=== PATIENT | female | born 1965 | race Caucasian/White ===

== ENCOUNTER 2018-02-06 16:33 | Inpatient (IN) ==
[2018-02-06] MEDS ORDERED: Labetalol HCl Inj 100 MG/20 ML Vial IV.PUSH ONE (16:51)
--- NOTE | 2018-02-06 16:56 | ED ---
HPI General Chief complaint: Recheck/Abnormal Lab/Rx Stated complaint: Pressure Behind Lft Eye Time Seen by Provider: 02/06/18 16:45 Source: patient Mode of arrival: ambulatory Limitations: no limitations History of Present Illness HPI narrative: 52yo F with PMH of HTN, fibromyalgia was sent from her eye doctor today for blood pressure control. 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 Pt has appointment with retinal specialist next week and was told to come to the ED because her blood pressure there was 210/150. Pt said she has not been taking blood pressure medication for 1 year and does not even remember what she was on. Said she has constant headache on left side. Denies any fever, trauma, chest pain, sob, n/v, abdominal pain, focal weakness or numbness. Related Data Home Medications Medication Instructions Recorded Confirmed hydrocodone-acetaminophen 1 tab PO Q6H PRN 02/06/18 02/06/18 Allergies Allergy/AdvReac Type Severity Reaction Status Date / Time No Known Allergies Allergy Unverified 02/06/18 16:43 Review of Systems ROS Unobtainable All other systems reviewed negative except as stated in HPI [facility] Medical History Medical History Fibromyalgia (Acute) Herniated cervical disc (Acute) Hypertension (Acute) Migraine (Acute) Surgical History Surgical History S/P hysterectomy (Acute) Social History Social History Substance History: No History of Abuse Second Hand Smoke Exposure: No Smoking Status: Current every day smoker Tobacco Type: Cigarettes How Often Do You Have a Drink Containing Alcohol: Never Recent Travel in [facility] within the Last 8 Weeks: No Recent Out of Country Travel within the Last 8 Weeks: No Exam Narrative Exam Narrative: GENERAL: 52yo F not in distress. SKIN: Focused skin assessment warm/dry. HEAD: Atraumatic. Normocephalic. EYES: Pupils equal and and dilated. Pt had dilatation of her pupils today. ENT: No nasal bleeding or discharge. Mucous membranes pink and moist. NECK: Trachea midline. No JVD. CARDIOVASCULAR: Regular rate and rhythm. No murmur appreciated. RESPIRATORY: No accessory muscle use. Clear to auscultation. Breath sounds equal bilaterally. GASTROINTESTINAL: Abdomen soft, non-tender, nondistended. MUSCULOSKELETAL: No obvious deformities. No clubbing. No cyanosis. No edema. NEUROLOGICAL: Awake and alert. No obvious cranial nerve deficits. Motor grossly within normal limits in all extremities. Sensation intact. Normal speech. PSYCHIATRIC: Appropriate mood and affect; insight and judgment normal. Course Initial Documented Vital Signs Temperature 98.4 F 02/06/18 16:46 Pulse Rate 94 H 02/06/18 16:46 Respiratory Rate 16 02/06/18 16:46 Blood Pressure 283/150 H 02/06/18 16:46 Pulse Oximetry 98 02/06/18 16:46 Last Documented Vital Signs Temperature 97.8 F 02/06/18 21:31 Pulse Rate 84 02/06/18 23:32 Respiratory Rate 29 H 02/06/18 23:32 Blood Pressure 205/111 H 02/06/18 23:32 Pulse Oximetry 99 02/06/18 21:31 Critical Care Time Critical Care Time: Yes Total Critical Care Time: 50 Attestation: Aggregate critical care time was 50 minutes. Time to perform other separately billable procedures was not included in the critical care time. My time did not include minutes spent treating any other patients simultaneously or on activities that did not directly contribute to the patient's treatment. The services I provided to this patient were to treat and/or prevent clinically significant deterioration that could result in: cardiovascular collapse or . I provided critical care services requiring my management, as noted below: Chart data review, documentation time, medication orders and management, vital sign assessments/reviewing monitor data, ordering and reviewing lab tests, ordering and interpreting/reviewing x-rays and diagnostic studies, care of the patient and discussion of the patient with the admitting physicians. Medical Decision Making MDM Narrative Medical decision making narrative: 52yo F was sent here from her eye doctor for blood pressure control. Pt has markedly elevated blood pressure of 283/150 and was given labetalol 20mg IV. BP improved a little and was given hydralazine 10mg IV. BP improved to 219/121 after hydralazine. Pt reevaluated at bedside and said headache has improved but still there. Repeat BP is now 233/118. Feel that pt already has end organ damage with her left eye artery occlusion and pt's blood pressure is not controlled after [address] brain negative. Labs reviewed, no leukocytosis. Creatinine mildly elevated at 1.40. No prior to compare. Will place pt on nicardipine drip. Discussed with Dr. Pickard and accepted to his service. Differential Diagnosis Differential Diagnosis: Hypertensive emergency vs. ICH vs. CVA vs. CHANO Lab Data Result diagrams: 02/06/18 17:05 02/06/18 17:05 Lab Results 02/06/18 02/06/18 Range/Units 17:05 17:05 CBC w Diff Auto diff final WBC 9.8 (4.0-11.0) th/mm3 RBC 4.24 (4.00-5.30) mil/mm3 Hgb 13.7 (11.6-15.3) gm/dL Hct 41.0 (35.0-46.0) % MCV 96.7 (80.0-100.0) fL MCH 32.4 (27.0-34.0) pg MCHC 33.5 (32.0-36.0) % RDW 13.4 (11.6-17.2) % Plt Count 311 (150-450) th/mm3 MPV 8.1 (7.0-11.0) fL Neut % (Auto) 71.7 H (16.0-70.0) % Lymph % (Auto) 22.8 (9.0-44.0) % Geary % (Auto) 1.6 (0.0-8.0) % Eos % (Auto) 3.3 (0.0-4.0) % Baso % (Auto) 0.6 (0.0-2.0) % Neut # (Auto) 7.0 (1.8-7.7) th/mm3 Lymph # (Auto) 2.2 (1.0-4.8) th/mm3 Geary # (Auto) 0.2 (0.0-0.9) th/mm3 Eos # (Auto) 0.3 (0.0-0.4) th/mm3 Baso # (Auto) 0.1 (0.0-0.2) th/mm3 WBC Differential . Differential Comment . Sodium 142 (136-145) meq/L Potassium 3.7 (3.5-5.1) meq/L Chloride 107 (98-107) meq/L Carbon Dioxide 27.2 (21.0-32.0) meq/L Anion Gap 8 (5-15) meq/L BUN 18 (7-18) mg/dL Creatinine 1.40 H (0.50-1.00) mg/dL Estimated GFR 39 L (>89) mL/min Random Glucose 89 (74-106) mg/dL Calcium 8.9 (8.5-10.1) mg/dL Imaging Data Radiologist's impression: Head CT 02/06/18 16:51 CONCLUSION: 1. Negative CT Head non contrast. . Discharge Plan Discharge Disposition Patient Disposition: 30 Still Patient Discharge Details Diagnosis: Hypertensive emergency Physicians Team ED Provider: Tomasa Booth Primary Care Provider: Thaddeus Ogden Attending Provider: Negrito Pickard Other Providers: Harmeet Verma Status ED Status: Left Department Discharge Information Discharge Date/Time: 02/06/18 21:29
[2018-02-06 17:11] LABS: Baso # (Auto) 0.1 th/mm3 (0.0-0.2); Baso % (Auto) 0.6 % (0.0-2.0); Eos # (Auto) 0.3 th/mm3 (0.0-0.4); Eos % (Auto) 3.3 % (0.0-4.0); Hemoglobin 13.7 gm/dL (11.6-15.3); Lymph # (Auto) 2.2 th/mm3 (1.0-4.8); Lymph % (Auto) 22.8 % (9.0-44.0); Mean Corpuscular HGB Conc 33.5 % (32.0-36.0); Mean Corpuscular Hemoglobin 32.4 pg (27.0-34.0); Mean Corpuscular Volume 96.7 fL (80.0-100.0); Mean Platelet Volume 8.1 fL (7.0-11.0); Mono # (Auto) 0.2 th/mm3 (0.0-0.9); Mono % (Auto) 1.6 % (0.0-8.0); Neut % (Auto) 71.7 % (16.0-70.0); Platelet Count 311 th/mm3 (150-450); Red Blood Count 4.24 mil/mm3 (4.00-5.30); Red Cell Distribution Width 13.4 % (11.6-17.2); White Blood Count 9.8 th/mm3 (4.0-11.0)
[2018-02-06 17:16] LABS: Potassium 3.7 meq/L (3.5-5.1)
[2018-02-06 17:20] LABS: Calcium 8.9 mg/dL (8.5-10.1); Carbon Dioxide 27.2 meq/L (21.0-32.0)
--- NOTE | 2018-02-06 17:33 | CT ---
EXAM DATE: 02/06/2018 5:28 PM EDT AGE/SEX: 52 years / Female INDICATIONS: Cephalgia. Pain behind left eye. CLINICAL DATA: This is the patient's initial encounter. Patient reports that signs and symptoms have been present for 7 - 11 months and indicates a pain score of 4/10. MEDICAL/SURGICAL HISTORY: Hypertension. Fusion, cervical. Hysterectomy. RADIATION DOSE: 38.65 CTDI (mGy) COMPARISON: No prior exams available for comparison. TECHNIQUE: CT of the head without contrast. Using automated exposure control and adjustment of the mA and/or kV according to patient size, radiation dose was kept as low as reasonably achievable to ob tain optimal diagnostic quality images. DICOM format image data is available electronically for revi ew and comparison. FINDINGS: Cerebrum: The ventricles are normal for age. No evidence of midline shift, mass lesion, hemorrhage or acute infarction. No extraaxial fluid collections are seen. Posterior Fossa: The cerebellum and brainstem are intact. The 4th ventricle is midline. The cerebe llopontine angle is unremarkable. Extracranial: The visualized portion of the orbits is intact. Skull: The calvaria is intact. No evidence of skull fracture. CONCLUSION: 1. Negative CT Head non contrast. . Electronically signed by: Prosper Rojas MD 02/06/2018 5:32 PM EDT
[2018-02-06] MEDS ORDERED: hydrALAZINE HCl Inj 20 MG/ML Vial IV.PUSH ONE (18:12)
[2018-02-06] MEDS ORDERED: niCARdipine Inj 25 MG in Sodium Chlor 0.9% Inj 240 ML IV.CONT PRN (18:56)
[2018-02-06] MEDS ORDERED: Bisacodyl 10 MG Supp RECTAL PRN (19:20)
[2018-02-06] MEDS: Senna/Docusate Sodium 8.6/50 MG Tablet PO SCH (22:04)
[2018-02-06] MEDS ORDERED: Morphine Inj 4 MG/ML Vial IV.PUSH ONE (22:21)
[2018-02-06] MEDS: Temazepam 15 MG Capsule PO PRN (22:54)
[2018-02-06] MEDS: Sod Chloride 0.9% Inj 1,000 ML IV.CONT SCH (22:59)
[2018-02-07] MEDS ORDERED: Chlorhexidine Gluconate 2% 1 Pack (2 Cloths) TOPICAL PRN (04:00)
[2018-02-07] MEDS: Chlorhexidine Gluconate 2% 1 Pack (2 Cloths) TOPICAL SCH (05:29)
[2018-02-07 07:21] LABS: Baso # (Auto) 0.4 th/mm3 (0.0-0.2); Baso % (Auto) 4.3 % (0.0-2.0); Eos # (Auto) 0.3 th/mm3 (0.0-0.4); Eos % (Auto) 3.3 % (0.0-4.0); Hematocrit 39.9 % (35.0-46.0); Lymph # (Auto) 2.5 th/mm3 (1.0-4.8); Lymph % (Auto) 26.7 % (9.0-44.0); Mean Corpuscular HGB Conc 32.7 % (32.0-36.0); Mean Corpuscular Hemoglobin 31.4 pg (27.0-34.0); Mean Corpuscular Volume 96.3 fL (80.0-100.0); Mean Platelet Volume 8.6 fL (7.0-11.0); Mono # (Auto) 0.6 th/mm3 (0.0-0.9); Mono % (Auto) 5.9 % (0.0-8.0); Neut # (Auto) 5.6 th/mm3 (1.8-7.7); Neut % (Auto) 59.8 % (16.0-70.0); Platelet Count 301 th/mm3 (150-450); Red Blood Count 4.15 mil/mm3 (4.00-5.30); Red Cell Distribution Width 13.6 % (11.6-17.2); White Blood Count 9.4 th/mm3 (4.0-11.0)
[2018-02-07 07:25] LABS: Chloride 110 meq/L (98-107); Potassium 3.7 meq/L (3.5-5.1); Sodium 142 meq/L (136-145)
[2018-02-07 07:28] LABS: Calcium 8.6 mg/dL (8.5-10.1)
[2018-02-07 07:29] LABS: Albumin 3.6 g/dL (3.4-5.0); Anion Gap 6 meq/L (5-15); Blood Urea Nitrogen 16 mg/dL (7-18); Carbon Dioxide 25.9 meq/L (21.0-32.0); Glucose,Random 90 mg/dL (74-106)
[2018-02-07 07:32] LABS: Alanine Aminotransferase 16 U/L (10-53); Aspartate Aminotransferase 15 U/L (15-37); Glomerular Filtration Rate 47 mL/min (>89)
[2018-02-07 07:33] LABS: Total Protein 6.6 g/dL (6.4-8.2)
[2018-02-07 07:35] LABS: Alkaline Phosphatase 67 U/L (45-117)
[2018-02-07] MEDS: NIFEdipine 10 MG Capsule PO SCH ×3 (09:10→17:02)
--- NOTE | 2018-02-07 09:22 | P.HP ---
History of Present Illness Primary Care Physician: Thaddeus Ogden DO Chief Complaint: Sent here by ophthalmology for elevated blood pressure History of Present Illness: 52-year-old female with known history of fibromyalgia, chronic neck pain, hypertension who was sent here by her deep submergence vehicle operator because of elevated blood pressure. As indicated the patient had partial blindness in her left eye if she went to an deep submergence vehicle operator who diagnosed her with arterial occlusion. Patient is scheduled outpatient with a retinal specialist at this time. However during her visit there her blood pressure was elevated 210/150. Patient came to emergency department and her blood pressure was 283/150. Patient was in obvious hypertensive emergency with retinal artery occlusion, vision loss, headache, kidney injury. Patient was given Apresoline, Lopressor IV, Catapres, started on Cardene drip with significant improvement and significant drop in her blood pressure down to 112/60. At that time the Cardene drip was discontinued. Patient was admitted to the ICU and her blood pressure did go back up to 221/115 in which they gave clonidine and her blood pressure is still elevated up to 197/100. Patient has a long history of hypertension is quit taking her blood pressure medication approximately 1 year ago. She has strong family history of heart disease, hypertension. Her sister has had a stroke due to untreated hypertension. Presently the patient is denying any headache, still having partial blindness in the left eye. Denies any chest pain, shortness of breath, abdominal pain, nausea, vomiting, diaphoresis. - Diagnosis (1) Blind hypertensive left eye (2) Retinal artery occlusion (3) Hypertensive kidney disease (4) Hypertensive emergency Review of Systems Eyes: Reports change in vision, Reports loss of vision Neurologic: Reports headache(s) [facility]LY [facility] - History History Provided By: Patient - Medical History Medical History: Medical History (Last Reviewed 02/07/18 @ 09:08 by CLEMENTINE Vargas) Fibromyalgia Herniated cervical disc Hypertension Migraine - Surgical History Surgical History: Surgical History (Last Updated 02/07/18 @ 08:50 by CLEMENTINE Vargas) Cyst, Smith's knee History of cervical spinal surgery History of rotator cuff surgery S/P hysterectomy - Family History Family History: Family History (Last Updated 02/07/18 @ 08:52 by CLEMENTINE Vargas) Father History of myocardial infarction Sister History of stroke - Tobacco History Second Hand Smoke Exposure: No Tobacco Use In Past 30 Days: Yes Smoking Status: Current every day smoker Tobacco Type: Cigarettes - Alcohol History How Often Do You Have a Drink Containing Alcohol: Never - Substance Use History Substance History: No History of Abuse - Travel History Recent Travel in the [place] Within the Last 8 Weeks: No Recent Travel Out of the Country Within the Last 8 Weeks: No - Immunization History Tetanus Immunization: >5 Years Hx Influenza Vaccine This Season: No Medications and Allergies Active Medications: Active Medications Hydrocodone Bitart/Acetaminophen ([place] 5/325) 1 tab PO Q4H PRN PRN Reason: PAIN SCALE 1 TO 10 Last Admin: 02/07/18 05:31 Dose: 1 tab Al Hydroxide/Mg Hydroxide (Milk Of Magnesia Liq) 30 ml PO Q12H PRN PRN Reason: Mild Constipation Bisacodyl (Dulcolax Supp) 10 mg RECTAL DAILY PRN PRN Reason: SEVERE CONSITIPATION Chlorhexidine Gluconate (Chlorhexidine 2% Cloth) 3 pack TOPICAL DAILY@0400 ON LICENSE OF [facility] Stop: 02/12/18 03:59 Last Admin: 02/07/18 05:29 Dose: 3 pack Chlorhexidine Gluconate (Chlorhexidine 2% Cloth) 3 pack TOPICAL DAILY@0400 PRN PRN Reason: Extra cloth needed Stop: 02/12/18 03:59 Hydralazine HCl (Apresoline Inj) 20 mg IV.PUSH Q4H PRN PRN Reason: SBP>160, DBP>90 Nicardipine HCl 25 mg/ Sodium (Chloride) 250 mls @ 50 mls/hr IV.CONT TITRATE PRN; Protocol PRN Reason: Per Protocol Last Admin: 02/06/18 19:36 Dose: 5 mg/hr, 50 mls/hr Sodium Chloride (Ns Inj) 1,000 mls @ 40 mls/hr IV.CONT .Q24H ON LICENSE OF [facility] Last Admin: 02/06/18 22:59 Dose: 40 mls/hr Lactulose (Lactulose Liq) 30 ml PO DAILY PRN PRN Reason: SEVERE CONSITIPATION Nifedipine (Procardia) 10 mg PO TID ON LICENSE OF [facility] Senna/Docusate Sodium (Asuncion-Colace) 1 tab PO BID ON LICENSE OF [facility] Last Admin: 02/06/18 22:04 Dose: Not Given Sennosides (Senokot) 17.2 mg PO Q12H PRN PRN Reason: Moderate Constipation Temazepam (Restoril) 15 mg PO HS PRN PRN Reason: INSOMNIA Last Admin: 02/06/18 22:54 Dose: 15 mg Allergies Allergy/AdvReac Type Severity Reaction Status Date / Time No Known Allergies Allergy Unverified 02/06/18 16:43 Home Medications Medication Instructions Recorded Confirmed Type hydrocodone-acetaminophen 1 tab PO Q6H PRN 02/06/18 02/06/18 History Exam Vital signs: Vital Signs 02/06/18 16:46 02/06/18 16:56 02/06/18 17:26 Temperature 98.4 F Pulse Rate 94 H 91 H 83 Respiratory Rate 16 16 Blood Pressure 283/150 H 231/117 H Pulse Oximetry 98 97 02/06/18 17:42 02/06/18 17:56 02/06/18 18:42 Temperature Pulse Rate 83 81 93 H Respiratory Rate 16 18 18 Blood Pressure 234/122 H 219/121 H 214/112 H Pulse Oximetry 95 95 98 02/06/18 19:30 02/06/18 20:00 02/06/18 20:30 Temperature Pulse Rate 84 88 86 Respiratory Rate 16 16 16 Blood Pressure 238/123 H 112/60 152/77 H Pulse Oximetry 98 98 02/06/18 20:40 02/06/18 21:00 02/06/18 21:31 Temperature 97.8 F Pulse Rate 82 88 86 Respiratory Rate 16 18 16 Blood Pressure 178/98 H 183/91 H 209/99 H Pulse Oximetry 99 02/06/18 22:00 02/06/18 23:12 02/06/18 23:18 Temperature Pulse Rate 86 88 Respiratory Rate 16 18 16 Blood Pressure 214/102 H 221/115 H Pulse Oximetry 02/06/18 23:32 02/07/18 00:00 02/07/18 01:00 Temperature Pulse Rate 84 88 86 Respiratory Rate 29 H 20 20 Blood Pressure 205/111 H 184/99 H 175/78 H Pulse Oximetry 02/07/18 02:00 02/07/18 03:00 02/07/18 04:00 Temperature 98 F Pulse Rate 86 82 78 Respiratory Rate 19 14 15 Blood Pressure 168/81 H 162/85 H 172/99 H Pulse Oximetry 96 02/07/18 05:00 02/07/18 06:00 02/07/18 07:00 Temperature Pulse Rate 76 78 80 Respiratory Rate 16 17 16 Blood Pressure 179/94 H 191/97 H 185/96 H Pulse Oximetry 02/07/18 07:19 02/07/18 08:00 Temperature 98.4 F Pulse Rate 94 H Respiratory Rate 16 21 Blood Pressure 197/100 H Pulse Oximetry Intake & Output 02/06/18 02/07/18 02/07/18 18:59 06:59 18:59 Intake Total 100 / 100 Balance 100 / 100 Weight 69.8 kg 69.7 kg 68.4 kg Intake: Oral 100 / 100 Other: # Voids 4 Date of Last Bowel Movement 02/06/18 # Bowel Movements 0 Weight On Admission 69.7 kg Narrative: GENERAL: Well-developed, well-nourished, in no acute distress. alert and orientated HEENT: Head is normocephalic without any lesions or masses noted. Facial features are symmetric. Eyes: Pupils equal round reactive to light. Extraocular muscles are intact. Conjunctivae were clear. Oropharyngeal: Pharynx without any erythema edema. Tongue is midline without deviation. Buccal mucosa is moist without any masses or lesions NECK: Supple without any masses. Trachea midline no deviation. No JVD, no bruits are appreciated CARDIAC: Regular rhythm, regular rate. S1/S2 are heard. No murmurs gallops or rubs. LUNGS: Clear to auscultation bilaterally. No wheeze, rhonchi or rales. No use of accessory muscles on inspiration or expiration. ABDOMEN: Soft, nontender. Nondistended. Bowel sounds heard in all 4 quadrants. No organomegaly or masses. Negative rebound, negative guarding EXTREMITIES: No edema, pulses are equal bilaterally. No cyanosis or clubbing NEUROLOGY: Mood and affect appear appropriate. Cranial nerves II through XII grossly intact. Muscle strength 5/5 in upper and lower extremities bilaterally. Deep tendon reflexes are 2+ in upper and lower extremities bilaterally. Results - Labs CBC & Chem 7: 02/07/18 06:43 02/07/18 06:43 Labs: Laboratory Results - last 24 hr 02/06/18 02/06/18 02/06/18 17:05 17:05 23:00 CBC w Diff Auto diff final WBC 9.8 RBC 4.24 Hgb 13.7 Hct 41.0 MCV 96.7 MCH 32.4 MCHC 33.5 RDW 13.4 Plt Count 311 MPV 8.1 Neut % (Auto) 71.7 H Lymph % (Auto) 22.8 [place] % (Auto) 1.6 Eos % (Auto) 3.3 Baso % (Auto) 0.6 Neut # (Auto) 7.0 Lymph # (Auto) 2.2 [place] # (Auto) 0.2 Eos # (Auto) 0.3 Baso # (Auto) 0.1 WBC Differential . Differential Comment . Sodium 142 Potassium 3.7 Chloride 107 Carbon Dioxide 27.2 Anion Gap 8 BUN 18 Creatinine 1.40 H Estimated GFR 39 L Random Glucose 89 Calcium 8.9 Total Bilirubin AST ALT Alkaline Phosphatase Total Protein Albumin Nasal Screen MRSA (PCR) Not detected 02/07/18 02/07/18 06:43 06:43 CBC w Diff Auto diff final WBC 9.4 RBC 4.15 Hgb 13.0 Hct 39.9 MCV 96.3 MCH 31.4 MCHC 32.7 RDW 13.6 Plt Count 301 MPV 8.6 Neut % (Auto) 59.8 Lymph % (Auto) 26.7 [place] % (Auto) 5.9 Eos % (Auto) 3.3 Baso % (Auto) 4.3 H Neut # (Auto) 5.6 Lymph # (Auto) 2.5 [place] # (Auto) 0.6 Eos # (Auto) 0.3 Baso # (Auto) 0.4 H WBC Differential . Differential Comment . Sodium 142 Potassium 3.7 Chloride 110 H Carbon Dioxide 25.9 Anion Gap 6 BUN 16 Creatinine 1.20 H Estimated GFR 47 L Random Glucose 90 Calcium 8.6 Total Bilirubin 0.7 AST 15 ALT 16 Alkaline Phosphatase 67 Total Protein 6.6 Albumin 3.6 Nasal Screen MRSA (PCR) - Imaging Impressions Head CT 02/06/18 16:51 CONCLUSION: 1. Negative CT Head non contrast. . Caprini VTE Risk Assessment Caprini VTE Risk Assessment: Moderate/High Risk (score >= 2) Caprini Risk Assessment Model: Point Value = 1 Point Value = 2 Point Value = 3 Point Value = 5 Age 41-60 Minor surgery BMI > 25 kg/m2 Swollen legs Varicose veins or History of unexplained or recurrent spontaneous Oral contraceptives or hormone replacement Sepsis (< 1 month) Serious lung disease, including pneumonia (< 1 month) Abnormal pulmonary function Acute myocardial infarction Congestive heart failure (< 1 month) History of inflammatory bowel disease Medical patient at bed rest Age 61-74 Arthroscopic surgery Major open surgery (> 45 min) Laparoscopic surgery (> 45 min) Malignancy Confined to bed (> 72 hours) Immobilizing plaster cast Central venous access Age >= 75 History of VTE Family history of VTE Factor V Leiden Prothrombin [id number] Lupus anticoagulant Anticardiolipin antibodies Elevated serum homocysteine Heparin-induced thrombocytopenia Other congenital or acquired thrombophilia Stroke (< 1 month) Elective arthroplasty Hip, pelvis, or leg fracture Acute spinal cord injury (< 1 month) Prophylaxis Regimen: Total Risk Factor Score Risk Level Prophylaxis Regimen 0-1 Low Early ambulation 2 Moderate Order ONE of the following: *Sequential Compression Device (SCD) *Heparin 5000 units SQ BID 3-4 Higher Order ONE of the following medications: *Heparin 5000 units SQ TID *Enoxaparin/Lovenox 40 mg SQ daily (WT < 150 kg, CrCl > 30 mL/min) *Enoxaparin/Lovenox 30 mg SQ daily (WT < 150 kg, CrCl > 10-29 mL/min) *Enoxaparin/Lovenox 30 mg SQ BID (WT < 150 kg, CrCl > 30 mL/min) AND/OR *Sequential Compression Device (SCD) 5 or more Highest Order ONE of the following medications: *Heparin 5000 units SQ TID (Preferred with Epidurals) *Enoxaparin/Lovenox 40 mg SQ daily (WT < 150 kg, CrCl > 30 mL/min) *Enoxaparin/Lovenox 30 mg SQ daily (WT < 150 kg, CrCl > 10-29 mL/min) *Enoxaparin/Lovenox 30 mg SQ BID (WT < 150 kg, CrCl > 30 mL/min) AND *Sequential Compression Device (SCD) Assessment and Plan - Assessment (1) Blind hypertensive left eye Code(s): H44.512 - Absolute glaucoma, left eye Status: Acute (2) Retinal artery occlusion Code(s): H34.9 - Unspecified retinal vascular occlusion Status: Acute (3) Hypertensive kidney disease Code(s): I12.9 - Hypertensive chronic kidney disease with stage 1 through stage 4 chronic kidney disease, or unspecified chronic kidney disease Status: Acute (4) Hypertensive emergency Code(s): I16.1 - Hypertensive emergency Status: Acute - Plan Hypertensive emergency -Patient presented with blindness in the left eye, headache, acute kidney injury -Patient admitted to the ICU after initial treatment emergency department with Lopressor IV, Apresoline IV, clonidine, started on Cardene IV -Cardene IV has been discontinued due to improvement of her blood pressure -Start Procardia 10 mg 3 times daily -Apresoline as needed Acute kidney injury -Likely secondary to hypertensive kidney disease -Continue IV fluids -Continue monitor renal function 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 Fibromyalgia, chronic neck pain -Lortab continued DVT prevention -Sequential compression devices Discussed Condition With: Patient, nursing staff
[2018-02-07] MEDS: hydrALAZINE HCl Inj 20 MG/ML Vial IV.PUSH PRN (09:26)
[2018-02-07] MEDS: Senna/Docusate Sodium 8.6/50 MG Tablet PO SCH ×2 (09:27→20:58)
[2018-02-07] MEDS ORDERED: Acetaminophen 325 MG Tablet PO PRN (10:37)
--- NOTE | 2018-02-07 12:17 | MR ---
EXAM DATE: 02/07/2018 11:57 AM EDT AGE/SEX: 52 years / Female INDICATIONS: CVA. CLINICAL DATA: This is the patient's subsequent encounter. Patient reports that signs and symptoms h ave been present for 2 days and indicates a pain score of 2/10. MEDICAL/SURGICAL HISTORY: Hypertension. Hysterectomy. Fusion, cervical. knee cyst removal and rotator cuff repair. COMPARISON: [facility], CT HEAD W/O CONTRAST, 02/06/2018. . TECHNIQUE: Multiplanar, multisequence examination of the brain was performed without contrast. FINDINGS: Cerebrum: The ventricles are normal for age. No evidence of midline shift, mass lesion, hemorrhage or acute infarction. No extraaxial fluid collections are seen. The pituitary gland and suprasellar cistern are normal in configuration. White Matter: There are focal and confluent areas of increased signal seen in the cerebral white mat ter. This also prominent increased signal within the cam. Posterior Fossa: The cerebellum and brainstem are intact. The 4th ventricle is midline. The cerebel lopontine angle is unremarkable. The cerebellar tonsils are normal in position. Diffusion Imaging: No focal areas of restricted diffusion are seen. No evidence of acute infarction . Extracranial: The visualized portions of the orbits and paranasal sinuses are unremarkable. CONCLUSION: Increased signal within the cerebral white matter and pontine white matter. This is nonspecific. It c ould be from small vessel ischemic change. The pontine findings are particularly prominent, one could consider osmotic demyelination syndrome in the correct clinical situation. Electronically signed by: Tl Jacob MD 02/07/2018 12:16 PM EDT
--- NOTE | 2018-02-07 12:21 | MR ---
EXAM DATE: 02/07/2018 11:57 AM EDT AGE/SEX: 52 years / Female INDICATIONS: CVA. CLINICAL DATA: This is the patient's subsequent encounter. Patient reports that signs and symptoms h ave been present for 2 days and indicates a pain score of 2/10. MEDICAL/SURGICAL HISTORY: Hypertension. Hysterectomy. Fusion, cervical. knee cyst removal and rotator cuff repair. COMPARISON: No prior exams available for comparison. TECHNIQUE: 3D [id number] MRA was performed. Source images, multiplanar STS MIP, and 3D volum e MIP reconstructions were reviewed. FINDINGS: The internal carotid arteries are patent bilaterally. These are seen to normally bifurcates into the anterior and middle cerebral arteries. The basilar artery is formed from the 2 vertebral arteries. Th e basilar artery is seen to normally bifurcates into the posterior cerebral arteries. The distal flow appears symmetric. No aneurysm is seen. The does appear to be artifact within the vascular structure s seen as areas of low signal within the lumen throughout. An actual area of thrombus is not seen. CONCLUSION: Negative MRA. Electronically signed by: Tl Jacob MD 02/07/2018 12:19 PM EDT
--- NOTE | 2018-02-07 13:02 | MB ---
cc: Harmeet Fuentes MD DATE: 02/07/2018 HISTORY OF PRESENT ILLNESS: She is a 49-year-old right-handed woman with hypertension, fibromyalgia, chronic neck pain, a plate in her neck, takes a baby aspirin a day, has chronic daily headaches in the left temporal region for many years. No recent temporal tenderness. Yesterday, she bent over and lost vision in part of her left eye visual field more in the center she thought. She went to the eye doctor and they noticed evidently some vision loss and high blood pressure up to 210/150. She came into the hospital. She has continued to have some high blood pressure. Evidently something seen in the retina, according to her. She has had no other vision loss, TIA or stroke-like symptoms. No chest pain or palpitations. She bent over yesterday, felt pain in the left eye and then vision loss in the left eye. FURTHER REVIEW OF SYSTEMS: She denies any hypercholesterolemia, diabetes, [place], stent, angioplasty, CABG, AFib, Coumadin, renal, hepatic or pulmonary disease, thyroid disease, lupus, ulcer, cancer, seizure, stroke. SOCIAL HISTORY: She is a smoker. I have asked her to quit. She is not a drinker. Lives with her mother. FAMILY HISTORY: Negative for cancer, seizure. Positive for stroke in her sister at age 60. The patient says she has never had any blood clots or miscarriages. MEDICATIONS AT HOME: Hydrocodone and the baby aspirin. MEDICATIONS HERE: 1. Lorimor. 2. Procardia 3. Restoril. PHYSICAL EXAMINATION: VITAL SIGNS: On exam, she has been in sinus rhythm, afebrile, 94-98, 159/78-197/100. Highest blood pressure here to 283/150 and she has been very high overnight and into this morning. NECK: There were no carotid bruits. HEART: Regular rate and rhythm. I do not detect a murmur. NEUROLOGIC: Pupils are equal. Visual padilla are full right eye. In the left eye she has a right upper quadrant field cut, but 4 quadrants are normal in the right eye and the other 3 quadrants appear to be normal on the left eye. The pupils are equal. Extraocular movements intact, without nystagmus. Face is symmetric with normal sensation. Tongue was midline. No drift. Normal strength in upper and lower extremities bilaterally. DTRs are 2+ and symmetric throughout. Toes downgoing bilaterally. Pinprick is intact throughout including the face. Temples are nontender bilaterally. She is not ataxic on [id number]. Speech is fluent. She is not aphasic. LABORATORY DATA: Basic metabolic profile is normal. LFTs are normal. CBC is normal. IMAGING STUDIES: She had an MRI of the brain done; it showed some white matter changes bilaterally. No acute infarct was noted. Review of the MRI films showed some white matter changes bilaterally diffusely, more hypertensive changes, not classic for MS, does not appear to be PRES. Diffusion image is negative. No hemorrhage is noted. Left orbit appears normal. MRA chicken [place] of [place] was read as negative. No aneurysms are noted. Vertebrobasilar system is normal. IMPRESSION: Likely a left branch retinal artery occlusion. RECOMMENDATIONS: We should get the ophthalmology notes and, if those are negative for any hemorrhage, I would start her on Plavix since she was already on an aspirin. We will check an MRA of the neck, sedimentation rate, a CRP some additional blood work, an echocardiogram, Holter monitor, a hypercoag screen. I will be following her with you in the hospital. It is okay to get her blood pressure down. MD PORTER Dye/SIMA , 12:34 PM , 12:45 PM
[2018-02-07] MEDS ORDERED: Gadobutrol PF 10 MMOL/10 ML Vial (for RAD) IV.SIG ONE (14:14)
--- NOTE | 2018-02-07 14:30 | MR ---
EXAM DATE: 02/07/2018 2:13 PM EDT AGE/SEX: 52 years / Female INDICATIONS: CVA. CLINICAL DATA: This is the patient's initial encounter. Patient reports that signs and symptoms have been present for 1 day and indicates a pain score of 0/10. MEDICAL/SURGICAL HISTORY: Hypertension. Fibromyalgia. Fusion, cervical. Hysterectomy. Cyst re moved from knee and rotator cuff repair. COMPARISON: [facility], MR HEAD W/O CONTRAST, 02/07/2018. . TECHNIQUE: Multiplanar, multisequence examination of the brain was performed without and with 10 ml G adavist (gadobutrol) contrast as a cumulative dose for multiple exams. FINDINGS: Cerebrum: The ventricles are normal for age. No evidence of midline shift, mass lesion, hemorrhage or acute infarction. No extraaxial fluid collections are seen. The pituitary gland and suprasellar cistern are normal in configuration. White Matter: Redemonstration of prominent periventricular and deep white matter T2 prolongation as well as pontine white matter increased T2 signal. There is no associated restricted diffusion or abno rmal enhancement. Posterior Fossa: The cerebellum and brainstem are intact. The 4th ventricle is midline. The cerebel lopontine angle is unremarkable. The cerebellar tonsils are normal in position. Diffusion Imaging: No focal areas of restricted diffusion are seen. No evidence of acute infarction . Extracranial: The visualized portions of the orbits and paranasal sinuses are unremarkable. Post Contrast: No abnormal areas of parenchymal or dural enhancement. No evidence of blood-brain ba rrier breakdown. CONCLUSION: 1. Redemonstration of prominent cerebral and pontine white matter T2 hyperintensity without restrict ed diffusion or abnormal enhancement. Although nonspecific, most likely differential consideration is small vessel ischemic demyelination. 2. No evidence for acute infarction, abnormal enhancement or hemorrhage. Electronically signed by: Reese Gamboa MD 02/07/2018 2:28 PM EDT
--- NOTE | 2018-02-07 14:36 | MR ---
EXAM DATE: 02/07/2018 2:13 PM EDT AGE/SEX: 52 years / Female INDICATIONS: Stroke. CLINICAL DATA: This is the patient's initial encounter. Patient reports that signs and symptoms have been present for 1 day and indicates a pain score of 0/10. MEDICAL/SURGICAL HISTORY: Hypertension. Fibromyalgia. Fusion, cervical. Hysterectomy. Cyst re moved from knee and rotator cuff repair. COMPARISON: No prior exams available for comparison. TECHNIQUE: 10 ml Gadavist (gadobutrol) contrast infused MRA (cumulative dose for multiple exams) of the extracranial circulation was performed using a neurovascular coil. Postprocessing was performed , including rotating sub-volume maximum intensity projections of each carotid artery, rotating full-v olume maximum intensity projections of both carotid arteries, sagittal and coronal sliding thin-slab reformations of each carotid artery, and left oblique sliding thin-slab reformation through the aorti c arch to include the origin of the arch branch vessels. FINDINGS: Aortic Arch : There is a three-vessel origin of the great vessels from the aorta. No evidence of o stial narrowing. Right Carotid : The common carotid artery is intact. The carotid bulb has a normal configuration wi thout ulceration or narrowing. The internal carotid artery lumen is smooth without stenosis. The ex ternal carotid artery is intact. Left Carotid : The common carotid artery is intact. The carotid bulb has a normal configuration wit hout ulceration or narrowing. The internal carotid artery lumen is smooth without stenosis. The ext ernal carotid artery is intact. Vertebrals : The vertebral arteries have a symmetric diameter. No stenotic lesions are seen. CONCLUSION: 1. Negative MRA Carotids. Percent stenosis is calculated using the diameter of the stenotic region over the diameter of the nor mal distal internal carotid artery Electronically signed by: Reese Gamboa MD 02/07/2018 2:35 PM EDT
[2018-02-07] MEDS: Aspirin 325 MG Tablet PO SCH (14:47)
[2018-02-07 16:51] LABS: Beta HCG,Quantitative 4 mIU/mL (0-5); Troponin I 0.03 ng/mL (0.02-0.05)
[2018-02-07 16:58] LABS: Creatine Kinase 77 U/L (26-192)
[2018-02-07] MEDS: Sod Chloride 0.9% Inj 1,000 ML IV.CONT SCH (19:31)
[2018-02-07] MEDS: Temazepam 15 MG Capsule PO PRN (22:44)
[2018-02-08 00:15] VITALS: TEMP 98.2
[2018-02-08] MEDS: Chlorhexidine Gluconate 2% 1 Pack (2 Cloths) TOPICAL SCH (04:00)
[2018-02-08] MEDS: hydrALAZINE HCl Inj 20 MG/ML Vial IV.PUSH PRN ×2 (04:01→11:04)
[2018-02-08 05:19] LABS: Cholesterol 162 mg/dL (120-200); Triglycerides 69 mg/dL (42-150)
[2018-02-08 05:21] LABS: Chol/HDL Ratio 2.77 Ratio; HDL Cholesterol 58.3 mg/dL (40.0-60.0); LDL Cholesterol,Calculated 90 mg/dL (0-99)
[2018-02-08 06:07] LABS: Potassium 3.4 meq/L (3.5-5.1)
[2018-02-08 06:11] LABS: Calcium 8.6 mg/dL (8.5-10.1); Carbon Dioxide 24.6 meq/L (21.0-32.0)
--- NOTE | 2018-02-08 08:25 | P.PN ---
Subjective Interval history: 52-year-old female seen and examined today in follow-up for hypertensive emergency. Patient blood pressure has improved with implementation of Procardia. Patient only required 2 as needed doses of medication yesterday. Patient denies any new symptoms. Still has some visual deficit in the left eye. Patient remains afebrile. Physical Exam Vital signs: Vital Signs 02/07/18 09:00 02/07/18 10:00 02/07/18 11:00 Temperature Pulse Rate 82 98 H 98 H Respiratory Rate 14 19 14 Blood Pressure 173/80 H 159/78 H 172/82 H Pulse Oximetry 02/07/18 12:05 02/07/18 13:00 02/07/18 14:15 Temperature 98.6 F Pulse Rate 98 H 98 H 100 H Respiratory Rate 12 16 16 Blood Pressure 183/89 H 171/84 H 161/91 H Pulse Oximetry 02/07/18 15:00 02/07/18 16:50 02/07/18 19:58 Temperature 98.7 F 98.8 F Pulse Rate 82 90 80 Respiratory Rate 15 18 16 Blood Pressure 160/83 H 174/95 H 150/74 H Pulse Oximetry 95 02/07/18 22:00 02/08/18 00:00 02/08/18 03:43 Temperature 98.2 F Pulse Rate 107 H 72 Respiratory Rate 12 30 H 15 Blood Pressure 162/87 H Pulse Oximetry 02/08/18 04:00 02/08/18 04:30 02/08/18 04:51 Temperature Pulse Rate 99 H Respiratory Rate 2 L 15 Blood Pressure 197/95 H 164/91 H Pulse Oximetry Intake & Output 02/07/18 02/08/18 02/08/18 18:59 06:59 18:59 Intake Total 920 / 920 1240 / 1240 Output Total 800 / 800 300 / 300 Balance 120 / 120 940 / 940 Weight 68.4 kg 69.2 kg Intake: IV 1000 / 1000 NS Inj 1,000 ML @ 40 mls/hr IV. 1000 / 1000 CONT .Q24H [facility] Rx#:[id number] Oral 920 / 920 240 / 240 Output: Urine 600 / 600 300 / 300 Emesis 200 / 200 Other: # Voids 3 # Bowel Movements 0 Narrative: GENERAL: Well-developed, well-nourished, in no acute distress. alert and orientated HEENT: Head is normocephalic without any lesions or masses noted. Facial features are symmetric. Eyes: Extraocular muscles are intact. Conjunctivae were clear. NECK: Supple without any masses. Trachea midline no deviation. No JVD, CARDIAC: Regular rhythm, regular rate. S1/S2 are heard. No murmurs gallops or rubs. LUNGS: Clear to auscultation bilaterally. No wheeze, rhonchi or rales. No use of accessory muscles on inspiration or expiration. ABDOMEN: Soft, nontender. Nondistended. Bowel sounds heard in all 4 quadrants. No organomegaly or masses. Negative rebound, negative guarding EXTREMITIES: No edema, pulses are equal bilaterally. No cyanosis or clubbing NEUROLOGY: Mood and affect appear appropriate. Cranial nerves II through XII grossly intact. Moving all extremities, speech clear Results - Labs CBC & Chem 7: 02/07/18 06:43 08 05:00 Laboratory Results - last 24 hr 02/07/18 02/07/18 02/07/18 06:43 06:43 16:18 ESR 4 Sodium Potassium Chloride Carbon Dioxide Anion Gap BUN Creatinine Estimated GFR Random Glucose Calcium Total Creatine Kinase 77 Troponin I 0.03 C-Reactive Protein Less than 0.29 Triglycerides 69 Cholesterol 162 LDL Cholesterol, Calc 90 HDL Cholesterol 58.3 Cholesterol/HDL Ratio 2.77 Beta HCG, Quant 4 Rheumatoid Factor Scrn Negative Rheumatoid Factor Titer Not Reportable 02/08/18 05:00 ESR Sodium 142 Potassium 3.4 L Chloride 110 H Carbon Dioxide 24.6 Anion Gap 7 BUN 17 Creatinine 1.20 H Estimated GFR 47 L Random Glucose 93 Calcium 8.6 Total Creatine Kinase Troponin I C-Reactive Protein Triglycerides Cholesterol LDL Cholesterol, Calc HDL Cholesterol Cholesterol/HDL Ratio Beta HCG, Quant Rheumatoid Factor Scrn Rheumatoid Factor Titer - Imaging Impressions Head MRI 02/07/18 00:00 CONCLUSION: Increased signal within the cerebral white matter and pontine white matter. This is nonspecific. It could be from small vessel ischemic change. The pontine findings are particularly prominent, one could consider osmotic demyelination syndrome in the correct clinical situation. Head MRI 02/07/18 00:00 CONCLUSION: 1. Redemonstration of prominent cerebral and pontine white matter T2 hyperintensity without restricted diffusion or abnormal enhancement. Although nonspecific, most likely differential consideration is small vessel ischemic demyelination. 2. No evidence for acute infarction, abnormal enhancement or hemorrhage. Head MRA 02/07/18 00:00 CONCLUSION: Negative MRA. Neck MRA 02/07/18 00:00 CONCLUSION: 1. Negative MRA Carotids. 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, left eye Status: Acute (2) Retinal artery occlusion Code(s): H34.9 - Unspecified retinal vascular occlusion Status: Acute (3) Hypertensive kidney disease Code(s): I12.9 - Hypertensive chronic kidney disease with stage 1 through stage 4 chronic kidney disease, or unspecified chronic kidney disease Status: Acute (4) Hypertensive emergency Code(s): I16.1 - Hypertensive emergency Status: Acute - Plan Hypertensive emergency, improving -Patient presented with blindness in the left eye, headache, acute kidney injury -Patient admitted to the ICU after initial treatment emergency department with Lopressor IV, Apresoline IV, clonidine, started on Cardene IV -Cardene IV has been discontinued due to improvement of her blood pressure -Convert to Procardia XL 60 mg daily -Start Lopressor 25 mg twice daily -Apresoline as needed Acute kidney injury, stable -Likely secondary to hypertensive kidney disease, laboratory studies have stabilized, indicating like chronic kidney disease stage III -Continue monitor renal function 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 Consideration for small vessel ischemic demyelinization. -MRA of the neck and head were both normal -Patient does have outpatient follow-up at this time, -Neurology consulted for further recommendations. Recommending full neurological workup with additional radiological studies, laboratory studies, -Awaiting echocardiogram, Holter monitor -Neurologist requesting outpatient records from community organization director for comparison -Patient has been continued on aspirin and Plavix has been started by neurologist Fibromyalgia, chronic neck pain -Lortab continued DVT prevention -Sequential compression devices Discharge Planning: Discharge planning once cleared by neurology
[2018-02-08 08:26] VITALS: O2SAT 97
[2018-02-08] MEDS: Aspirin 325 MG Tablet PO SCH (09:55)
[2018-02-08 11:13] LABS: Anti-Nuclear Antibody Screen Pos (Neg)
--- NOTE | 2018-02-08 11:54 | ECHRPT ---
Indication: CVA/TIA CONCLUSIONS Normal left ventricular size. Mild concentric left ventricular hypertrophy. The left ventricular systolic function is hyperdynamic with an estimated ejection fraction in the ra nge of 65- 70%. There is trace tricuspid valve regurgitation. BP: / HR: Rhythm: Sinus MEASUREMENTS (Male / Female) Normal Values Technical Quality:Fair 2D ECHO LV Diastolic Diameter PLAX 4.5 cm 4.2 - 5.9 / 3.9 - 5.3 cm LV Systolic Diameter PLAX 2.8 cm IVS Diastolic Thickness 1.2 cm 0.6 - 1.0 / 0.6 - 0.9 cm LVPW Diastolic Thickness 1.2 cm 0.6 - 1.0 / 0.6 - 0.9 cm LV Relative Wall Thickness 0.5 RV Internal Dim ED PLAX 2.0 cm LVOT Diameter 1.8 cm Aortic Root Diameter 2.8 cm LA Systolic Diameter LX 3.0 cm 3.0 - 4.0 / 2.7 - 3.8 cm M-MODE AV Cusp Separation MM 1.9 cm DOPPLER AV Peak Velocity 164.0 cm/s AV Peak Gradient 10.8 mmHg AV Mean Gradient 5.0 mmHg AV Velocity Time Integral 25.9 cm LVOT Peak Velocity 138.0 cm/s LVOT Peak Gradient 7.6 mmHg LVOT Velocity Time Integral 25.0 cm AV Area Cont Eq vti 2.5 cm AV Area Cont Eq pk 2.1 cm Mitral E Point Velocity 97.2 cm/s Mitral A Point Velocity 107.0 cm/s Mitral E to A Ratio 0.9 LV E' Lateral Velocity 7.7 cm/s Mitral E to LV E' Lateral Ratio 12.6 LV E' Septal Velocity 7.4 cm/s Mitral E to LV E' Septal Ratio 13.1 PV Peak Velocity 85.0 cm/s PV Peak Gradient 2.9 mmHg FINDINGS LEFT VENTRICLE Normal left ventricular size. Mild concentric left ventricular hypertrophy. The left ventricular systolic function is hyperdynamic with an estimated ejection fraction in the ra nge of 65- 70%. RIGHT VENTRICLE Normal right ventricular size and systolic function. LEFT ATRIUM The left atrial size is normal. RIGHT ATRIUM The right atrial size is normal. ATRIAL SEPTUM No atrial level shunt is demonstrated by color flow Doppler interrogation. AORTA The aortic root and proximal ascending aorta are normal in size on limited imaging. MITRAL VALVE Structurally normal mitral valve. No mitral valve stenosis or regurgitation. AORTIC VALVE Trileaflet aortic valve. No aortic valve stenosis or regurgitation. TRICUSPID VALVE There is trace tricuspid valve regurgitation. PULMONARY VALVE No pulmonary valve regurgitation or stenosis. VESSELS The inferior vena cava is normal in size. PERICARDIUM No pericardial effusion. Joey Santiago MD, FACC, [facility] [place] (Electronically Signed) Final Date:08 February 2018 11:53
[2018-02-08] MEDS: Senna/Docusate Sodium 8.6/50 MG Tablet PO SCH ×2 (16:42→20:37)
[2018-02-08] MEDS: Metoprolol Tartrate 25 MG Tablet PO SCH ×2 (17:15→20:37)
--- NOTE | 2018-02-08 17:36 | P.PNNEU ---
Subjective Subjective Comments: bp still up sr Active Medications: Active Medications Acetaminophen (Tylenol) 650 mg PO Q4H PRN PRN Reason: HEADACHE OR TEMP > 101 F Last Admin: 02/07/18 10:49 Dose: 650 mg Hydrocodone Bitart/Acetaminophen ([place] 5/325) 1 tab PO Q4H PRN PRN Reason: PAIN SCALE 1 TO 10 Last Admin: 02/08/18 16:57 Dose: 1 tab Al Hydroxide/Mg Hydroxide (Milk Of Magnesia Liq) 30 ml PO Q12H PRN PRN Reason: Mild Constipation Aspirin (Aspirin) 325 mg PO DAILY [facility] Last Admin: 02/08/18 09:55 Dose: 325 mg Bisacodyl (Dulcolax Supp) 10 mg RECTAL DAILY PRN PRN Reason: SEVERE CONSITIPATION Chlorhexidine Gluconate (Chlorhexidine 2% Cloth) 3 pack TOPICAL DAILY@0400 [facility] Stop: 02/12/18 03:59 Last Admin: 02/08/18 04:00 Dose: 3 pack Chlorhexidine Gluconate (Chlorhexidine 2% Cloth) 3 pack TOPICAL DAILY@0400 PRN PRN Reason: Extra cloth needed Stop: 02/12/18 03:59 Clopidogrel Bisulfate (Plavix) 75 mg PO DAILY [facility] Last Admin: 02/08/18 09:55 Dose: 75 mg Hydralazine HCl (Apresoline Inj) 20 mg IV.PUSH Q4H PRN PRN Reason: SBP>160, DBP>90 Last Admin: 02/08/18 11:04 Dose: 20 mg Lactulose (Lactulose Liq) 30 ml PO DAILY PRN PRN Reason: SEVERE CONSITIPATION Metoclopramide HCl (Reglan Inj) 5 mg IV.PUSH ACHS PRN; Protocol PRN Reason: NAUSEA OR VOMITING Last Admin: 02/08/18 16:56 Dose: 5 mg Metoprolol Tartrate (Lopressor) 25 mg PO BID [facility] Last Admin: 02/08/18 17:15 Dose: 25 mg Nifedipine (Procardia Xl) 60 mg PO DAILY [facility] Last Admin: 02/08/18 09:56 Dose: 60 mg Ondansetron HCl (Zofran Inj) 4 mg IV.PUSH Q6H PRN PRN Reason: NAUSEA OR VOMITING Last Admin: 02/08/18 08:40 Dose: 4 mg Senna/Docusate Sodium (Asuncion-Colace) 1 tab PO BID [facility] Last Admin: 02/08/18 16:42 Dose: Not Given Sennosides (Senokot) 17.2 mg PO Q12H PRN PRN Reason: Moderate Constipation Last Admin: 02/08/18 16:55 Dose: 17.2 mg Temazepam (Restoril) 15 mg PO HS PRN PRN Reason: INSOMNIA Last Admin: 02/07/18 22:44 Dose: 15 mg Allergies/Adverse Reactions: Allergies Allergy/AdvReac Type Severity Reaction Status Date / Time No Known Allergies Allergy Unverified 02/06/18 16:43 Physical Exam Vital signs: Vital Signs 02/07/18 19:58 02/07/18 22:00 02/08/18 00:00 Temperature 98.8 F 98.2 F Pulse Rate 80 107 H Respiratory Rate 16 12 30 H Blood Pressure 150/74 H 162/87 H Pulse Oximetry 95 02/08/18 03:43 02/08/18 04:00 02/08/18 04:30 Temperature Pulse Rate 72 Respiratory Rate 15 2 L Blood Pressure 197/95 H Pulse Oximetry 02/08/18 04:51 02/08/18 08:06 02/08/18 10:01 Temperature 98.2 F Pulse Rate 99 H 101 H 102 H Respiratory Rate 15 20 27 H Blood Pressure 164/91 H 194/95 H 215/107 H Pulse Oximetry 97 02/08/18 10:03 02/08/18 11:00 02/08/18 11:19 Temperature Pulse Rate 98 H 78 98 H Respiratory Rate 18 15 17 Blood Pressure 201/99 H 214/100 H 202/96 H Pulse Oximetry 02/08/18 11:48 02/08/18 11:52 02/08/18 12:00 Temperature Pulse Rate 112 H 110 H Respiratory Rate 22 21 Blood Pressure 197/91 H 179/85 H Pulse Oximetry Intake & Output 02/07/18 02/08/18 02/08/18 18:59 06:59 18:59 Intake Total 920 / 920 1240 / 1240 Output Total 800 / 800 300 / 300 Balance 120 / 120 940 / 940 Weight 68.4 kg 69.2 kg Intake: IV 1000 / 1000 NS Inj 1,000 ML @ 40 mls/hr IV. 1000 / 1000 CONT .Q24H [facility] Rx#:[id number] Oral 920 / 920 240 / 240 Output: Urine 600 / 600 300 / 300 Emesis 200 / 200 Other: # Voids 3 Date of Last Bowel Movement 02/06/18 # Bowel Movements 0 Narrative: pupil = vff od and va ok there now still some central vision loss and os ruq i thought looked a little better nl face and strength and voice Objective Laboratory Results - last 24 hr 02/07/18 02/07/18 02/08/18 16:18 16:18 05:00 Sodium 142 Potassium 3.4 L Chloride 110 H Carbon Dioxide 24.6 Anion Gap 7 BUN 17 Creatinine 1.20 H Estimated GFR 47 L Random Glucose 93 Calcium 8.6 Triglycerides 69 Cholesterol 162 LDL Cholesterol, Calc 90 HDL Cholesterol 58.3 Cholesterol/HDL Ratio 2.77 Rheumatoid Factor Scrn Negative Rheumatoid Factor Titer Not Reportable WARD Screen Pos H RPR Nonreactive Review/Management - Review/Management Plan: imp i thought vision a little better plavix and med team i would start a statin mri/a/a and echo and labs esr crp all nl hypercoag pend dc asa in three days fu retina can dc neurowise when bp better fu holter i dw optho a crao not bleed
[2018-02-08] MEDS: Temazepam 15 MG Capsule PO PRN (23:06)
--- NOTE | 2018-02-09 08:07 | P.DS ---
Date of admission: 02/06/18 19:20 Primary care physician: Thaddeus Ogden DO Attending physician on discharge: Jonna Storey Anticipated date of discharge: 02/09/18 Brief History from admission: 52-year-old female with known history of fibromyalgia, chronic neck pain, hypertension who was sent here by her psych np because of elevated blood pressure. As indicated the patient had partial blindness in her left eye if she went to an psych np who diagnosed her with arterial occlusion. Patient is scheduled outpatient with a retinal specialist at this time. However during her visit there her blood pressure was elevated 210/150. Patient came to emergency department and her blood pressure was 283/150. Patient was in obvious hypertensive emergency with retinal artery occlusion, vision loss, headache, kidney injury. Patient was given Apresoline, Lopressor IV, Catapres, started on Cardene drip with significant improvement and significant drop in her blood pressure down to 112/60. At that time the Cardene drip was discontinued. Patient was admitted to the ICU and her blood pressure did go back up to 221/115 in which they gave clonidine and her blood pressure is still elevated up to 197/100. Patient has a long history of hypertension is quit taking her blood pressure medication approximately 1 year ago. She has strong family history of heart disease, hypertension. Her sister has had a stroke due to untreated hypertension. Presently the patient is denying any headache, still having partial blindness in the left eye. Denies any chest pain, shortness of breath, abdominal pain, nausea, vomiting, diaphoresis. DS: Diagnosis - Discharge Diagnosis (1) Blind hypertensive left eye Status: Acute (2) Retinal artery occlusion Status: Acute (3) Hypertensive kidney disease Status: Acute (4) Hypertensive emergency Status: Acute DS: Medications - Discharge Medications Prescriptions: clopidogrel [Plavix] 75 mg PO DAILY #30 tab metoprolol tartrate 25 mg PO BID #60 tab nifedipine 60 mg PO DAILY #30 tab DS: Summary Hospital Course: 52-year-old female who originally presented to the hospital at the request of her psych np because of elevated blood pressure. Patient presented there because of partial blindness in supposedly found a retinal artery occlusion. Patient blood pressure was 210/150 when she was at the psych np office, which he presented to the emergency department blood pressure 283/150. Patient was given Apresoline, Lopressor, Catapres in the emergency department started on Cardene drip with significant improvement of her blood pressure dropping down 112/60. Patient was admitted to the ICU for continued management. Neurology was consulted for evaluation of her retinal artery occlusion. Patient had full neurological workup with MRI, MRA, echocardiogram, Holter monitor, laboratory studies. Neurologist recommended starting of Plavix and discontinuing aspirin. He recommended patient follow-up with her retinal specialist and psych np. He indicated that she is stable for discharge from neurological standpoint. In reference to her blood pressure patient was started on Procardia 10 mg 3 times daily with improvement of her blood pressure. He was converted to Procardia XL 30 mg daily with continued improvement in her blood pressure. Addition of metoprolol 25 mg twice daily was also started. Patient blood pressure doing much better at this time. Her systolic blood pressure overnight ranged anywhere from 100-160. Discussed with her the need to lower the blood pressure slowly since she has been probably running very high for a very long period of time. Patient should follow-up with her prior medical doctor for continued blood pressure management. Patient did have azotemia on presentation, likely related to hypertensive kidney disease/chronic kidney disease. Patient was started on IV fluids and renal functions were monitored. Her renal function only minimally improved. Likely patient with chronic kidney disease stage III at this time likely from chronic hypertension. Patient clinically stable this time. Blood pressure is stable and significantly improved from presenting blood pressure. Patient is very eager to go home. We will plan discharge home today. Patient was notified that she needs a follow-up with her primary medical doctor for continued blood pressure management. Patient was counseled on compliance with medications. - Time Spent with Patient Total time spent providing and/or coordinating discharge services: Greater than 30 minutes - Quality: VTE Deep Vein Thrombosis/Pulmonary Embolism Present on Admission: No Exam Vital signs: Vital Signs 02/08/18 08:06 02/08/18 10:01 02/08/18 10:03 Temperature 98.2 F Pulse Rate 101 H 102 H 98 H Respiratory Rate 20 27 H 18 Blood Pressure 194/95 H 215/107 H 201/99 H Pulse Oximetry 97 02/08/18 11:00 02/08/18 11:19 02/08/18 11:48 Temperature Pulse Rate 78 98 H 112 H Respiratory Rate 15 17 22 Blood Pressure 214/100 H 202/96 H Pulse Oximetry 02/08/18 11:52 02/08/18 12:00 02/08/18 16:00 Temperature Pulse Rate 110 H 106 H Respiratory Rate 21 14 Blood Pressure 197/91 H 179/85 H 172/74 H Pulse Oximetry 02/08/18 17:00 02/08/18 20:00 02/08/18 21:30 Temperature 98.2 F Pulse Rate 104 H 85 Respiratory Rate 16 30 H 2 L Blood Pressure 188/99 H 163/89 H Pulse Oximetry 97 02/09/18 00:00 02/09/18 03:49 Temperature 97.8 F 98.5 F Pulse Rate 77 71 Respiratory Rate 16 16 Blood Pressure 162/83 H 158/84 H Pulse Oximetry 99 99 Intake & Output 02/08/18 02/09/18 02/09/18 18:59 06:59 18:59 Intake Total 1120 / 1120 360 / 360 Output Total 725 / 725 Balance 395 / 395 360 / 360 Weight 68.6 kg Intake: IV 480 / 480 NS Inj 1,000 ML @ 40 mls/hr IV. 480 / 480 CONT .Q24H BRUCE Rx#:[id number] Oral 480 / 480 360 / 360 Other 160 / 160 Output: Urine 625 / 625 Emesis 100 / 100 Other: Other Intake Source Saline Solution # Voids 4 3 # Incontinent Voids 0 Date of Last Bowel Movement 02/06/18 # Emeses 1 Narrative: GENERAL: Well-developed, well-nourished, in no acute distress. alert and orientated HEENT: Head is normocephalic without any lesions or masses noted. Facial features are symmetric. Eyes: Extraocular muscles are intact. Conjunctivae were clear. NECK: Supple without any masses. Trachea midline no deviation. No JVD, CARDIAC: Regular rhythm, regular rate. S1/S2 are heard. No murmurs gallops or rubs. LUNGS: Clear to auscultation bilaterally. No wheeze, rhonchi or rales. No use of accessory muscles on inspiration or expiration. ABDOMEN: Soft, nontender. Nondistended. Bowel sounds heard in all 4 quadrants. No organomegaly or masses. Negative rebound, negative guarding EXTREMITIES: No edema, pulses are equal bilaterally. No cyanosis or clubbing NEUROLOGY: Mood and affect appear appropriate. Cranial nerves II through XII grossly intact. Moving all extremities, speech clear Results Procedures completed during hospitalization: ECHOCARDIOGRAM Normal left ventricular size. Mild concentric left ventricular hypertrophy. The left ventricular systolic function is hyperdynamic with an estimated ejection fraction in the range of 65- 70%. There is trace tricuspid valve regurgitation. Labs on day of discharge: Labs from last 24 hours 02/07/18 16:18 WARD Screen Pos H WARD Titer Pending WARD Pattern Pending WARD Interpretation Pending RPR Nonreactive - Impressions ITS Impressions Head CT 02/06/18 16:51 CONCLUSION: 1. Negative CT Head non contrast. . Head MRI 02/07/18 00:00 CONCLUSION: 1. Redemonstration of prominent cerebral and pontine white matter T2 hyperintensity without restricted diffusion or abnormal enhancement. Although nonspecific, most likely differential consideration is small vessel ischemic demyelination. 2. No evidence for acute infarction, abnormal enhancement or hemorrhage. Head MRA 02/07/18 00:00 CONCLUSION: Negative MRA. Neck MRA 02/07/18 00:00 CONCLUSION: 1. Negative MRA Carotids. Percent stenosis is calculated using the diameter of the stenotic region over the diameter of the normal distal internal carotid artery Discharge Plan - Discharge Disposition Patient Disposition: 01 Discharge Home - Discharge Condition Condition: Stable - Discharge Order Discharge Orders: Discharge Order (Routine); Ordered 02/09/18 Ordered By: Gene Jc - Discharge Details Anticipated Discharge Date: 02/09/18 - Physicians Team Primary Care Provider: Thaddeus Ogden Attending Provider: Jonna Storey Other Providers: Harmeet Verma MD
[2018-02-09] MEDS: Aspirin 325 MG Tablet PO SCH (08:20)
[2018-02-09] MEDS: Metoprolol Tartrate 25 MG Tablet PO SCH (08:21)
[2018-02-09] MEDS: Senna/Docusate Sodium 8.6/50 MG Tablet PO SCH (08:21)
--- NOTE | 2018-02-09 14:33 | HM ---
Date Performed: 02/07/2018 Time Performed: 17:28:00 HOOKUP DATE: 02/07/18 05:28:00 PM Ynes ANALYSIS START TIME: 02/07/2018 5:33:00 PM ANALYSIS END TIME: 02/08/2018 5:36:59 PM PATIENT AGE: 52 PATIENT HEIGHT PATIENT WEIGHT DRUG LIST PATIENT DIAGNOSIS TEST NARRATIVE: The patient's average heart rate was 89 BPM. Heart rates greater than 120 B PM were noted 3% of the time. No episodes of bradycardia were noted. No pauses exceeding 2.0 sec onds were noted. No ventricular ectopics were noted. 428 supraventricular ectopics, which rep resented < 1% of the total beat count, were noted. The highest supraventricular ectopic frequency oc curred from 09:00 AM to 10:00 AM Fri. During this time 93 SVE(s) occurred. Multiple episodes of ST depression (defined as -1.0 mm or more) were noted in channel 1. The maximum depression of -1.9 mm occurred at 11:14:32 AM Fri. Multiple episodes of ST depression (defined as -1.0 mm or more) wer e noted in channel 2. The maximum depression of -2.0 mm occurred at 04:43:47 PM Fri. Multiple episo elva of ST depression (defined as -1.0 mm or more) were noted in channel 3. The maximum depression o f -1.9 mm occurred at 11:11:35 AM Fri. Baseline rhythm was sinus. No diary provided TEST INTERPRETATION: Normal holter Signed by : Shauna Laura
[2018-02-11 15:52] LABS: Dil Russell Viper Venom Conf ( ND (NEGATIVE); Dil Russell Viper Venom Time M ND (CORRECTED); Lupus Anticoagulant PTT Screen 34 seconds (< OR = 40)
[2018-02-11 23:53] LABS: Factor VIII (8) Activity 48 (50-180)
[2018-02-11 23:54] LABS: Activated Protein C Resistance 4.4 ratio (> OR = 2.1); Homocysteine (Cardiovascular) 23.6 umol/L (<10.4)
[2018-02-12 18:00] VITALS: BP 172/92; PULSE 85; RESP 18
[2018-02-13 09:24] LABS: Factor V Leiden Mutation Negative (Negative); Protein C Antigen 72 % (70-150)
== END 2018-02-09 10:17 | disposition home or self-care (01) ==
LOC: PHEDA 16:33 → PHED 16:33 → PHICU 21:27
PROVIDERS: ADMIT Family Medicine; ATTEND Family Medicine